=== PATIENT | female | born 1985 | race Two or more races ===

== ENCOUNTER 2019-05-20 12:36 | Emergency (ER) | payer SELFPAY ==
[~2019-05-20] VITALS: Ht 160 cm; Wt 73.5 kg
[2019-05-20 12:53] VITALS: BP 137/92
[2019-05-20] MEDS ORDERED: KETOROLAC TROMETH 60MG/2ML VIAL IM ONE (14:30)
== END 2019-05-20 14:50 | disposition home or self-care (01) ==
LOC: ER 12:38
DX: G89.29 Other chronic pain (principal); M25.511 Pain in right shoulder; M75.31 Calcific tendinitis of right shoulder
CPT/HCPCS: 96372; 99283; J1885

== ENCOUNTER 2019-07-28 18:03 | Emergency (ER) | payer MEDICAID ==
[~2019-07-28] VITALS: Ht 160 cm; Wt 74.8 kg
[2019-07-28 20:10] VITALS: BP 149/84
[2019-07-28] MEDS ORDERED: methylPREDNISolone SOD SUCC 125 MG/2 ML VL IM ONE (20:15)
[2019-07-28] MEDS ORDERED: KETOROLAC TROMETH 60MG/2ML VIAL IM ONE (20:15)
== END 2019-07-28 20:44 | disposition home or self-care (01) ==
LOC: ER 18:03
DX: M25.511 Pain in right shoulder (principal); E11.9 Type 2 diabetes mellitus without complications
CPT/HCPCS: 73030; 96372; 99284; J1885; J2930

== ENCOUNTER 2019-10-12 09:41 | Emergency (ER) | payer MEDICAID ==
[~2019-10-12] VITALS: Ht 160 cm; Wt 76.2 kg
[2019-10-12 10:11] VITALS: BP 140/82
[2019-10-12] MEDS ORDERED: KETOROLAC TROMETH 60MG/2ML VIAL IM ONE (11:00)
[2019-10-12] MEDS ORDERED: methylPREDNISolone SOD SUCC 125 MG/2 ML VL IM ONE (11:00)
== END 2019-10-12 11:39 | disposition home or self-care (01) ==
LOC: ER 09:41
DX: M25.511 Pain in right shoulder (principal); E11.9 Type 2 diabetes mellitus without complications
CPT/HCPCS: 96372; 99284; J1885; J2930

== ENCOUNTER 2019-11-15 20:59 | Emergency (ER) | payer MEDICAID ==
[~2019-11-15] VITALS: Ht 160 cm; Wt 76.2 kg
[2019-11-15 22:08] VITALS: BP 133/86
[2019-11-15] MEDS ORDERED: KETOROLAC TROMETH 60MG/2ML VIAL IM ONE (22:30)
== END 2019-11-15 23:18 | disposition home or self-care (01) ==
LOC: ER 20:59
DX: M77.8 Other enthesopathies, not elsewhere classified (principal); M25.511 Pain in right shoulder; G89.29 Other chronic pain; E11.9 Type 2 diabetes mellitus without complications
CPT/HCPCS: 96372; 99283; J1885